=== PATIENT | female | born 1965 | race Caucasian/White ===

== ENCOUNTER 2017-12-16 12:59 | Inpatient (IN) ==
[2017-12-16] MEDS ORDERED: Nitroglycerin 25 MG/250 ML INFUS..BTL IVC SCH (17:45)
[2017-12-16] MEDS ORDERED: Naloxone 0.4 MG/ML INJ IVP PRN (17:53)
[2017-12-16] MEDS ORDERED: *HR* Promethazine 25 MG/ML VIAL ONE (17:56)
[2017-12-16] MEDS ORDERED: traMADol 50 MG TABLET PO PRN (17:59)
[2017-12-16] MEDS ORDERED: *HR* Heparin 5,000 UNIT/ML VIAL IVP PRN ×2 (17:59)
[2017-12-16] MEDS ORDERED: Heparin 25,000 UNIT/500 ML D5W 25,000 UNIT/500 ML BAG IVC SCH (18:00)
[2017-12-16] MEDS: *HR* Promethazine 25 MG/ML VIAL IVP PRN (18:00)
[2017-12-16] MEDS ORDERED: *HR* Metoprolol 5 MG/5 ML VIAL IVP PRN (18:03)
--- NOTE | 2017-12-16 18:09 | Internal Med History&Physical ---
Date of Encounter: 12/16/17 Time of Encounter: 15:50 Internal Medicine - H&P: HPI Chief complaint: chest pain History of present illness: Ms. Nair is a 52 year old female with morbid obesity and hypertension, presented to the outside hospital ED with sudden onset of chest pain. Started at 3 AM this morning, woke her up from the sleep, pressure-like, substernal in location, and radiates to left arm. She also complains of left arm numbness associated with it. She thought it was indigestion and took a couple of doses of ibuprofen as well as Tums without relief. Instead, she started vomiting at around 6:00 and decided to go to the ER for further evaluation. Denies any previous similar episodes. No recent illnesses, fevers/chills, abdominal pain, change in bowel habits, dysuria, joint pain, or rash. At the emergency department, she was hypertensive, but otherwise hemodynamically stable and afebrile. Initial labs including troponin were unremarkable, and EKG showed bifascicular block which ED physician was not sure whether there were old or new. Repeat troponin done 4 hours later was elevated at 0.17 and she had recurrence of chest pain which required few rounds of nitroglycerin hence she was started on nitro drip. She was loaded with aspirin and started on heparin drip and transferred to [facility] for further management. Past Med Surg Social Fam HX - Past Medical History Medical history: no medical history, hypertension Psychiatric history: anxiety - Social History Smoking Status: Never smoker Smokeless Tobacco Status: No Alcohol use: occasionally Drug use: none - Additional Family History Additional family history: No family history of premature CAD. Internal Medicine - H&P: Meds Hydrocodone/Acetaminophen [[place] 5-325 Tablet] 1 tab PO Q6H PRN #8 tab 02/25/16 [Rx] Naproxen [Naprosyn] 500 mg PO BID PRN #15 tablet 02/25/16 [Rx] 3 Allergy/AdvReac Type Severity Reaction Status Date / Time No Known Allergies Allergy Verified 02/25/16 11:19 All Systems PM: A 10-system review of systems was performed and is negative for pertinent findings except as documented above in the HPI. - Constitutional Vitals: Temp Pulse Resp BP Pulse Ox 98.2 F 80 10 158/102 95 12/16/17 17:16 12/16/17 17:16 12/16/17 17:16 12/16/17 17:16 12/16/17 17:16 Exam: General: Alert and oriented, mild distress HEENT:EOM, pupils equal, round, and reactive. Cardiovascular:Normal S1 & S2, no murmurs or gallops. No JVD. Pulse regular. Lungs:Normal breath sounds, no wheezes or crackles. Abdomen:Soft, non-tender, no rigidity. Extremities:No deformity, no edema or tenderness, no joint swelling. Neurological:Normal cognition and motor skills. Anxious Skin:Normal color, no rash, no lesions. Pulses:Carotid and radial pulses normal +2. Rest of the physical exam is non-contributory - Assessment and plan (1) NSTEMI (non-ST elevated myocardial infarction) Current Visit: Yes Status: Acute Assessment and plan: History and clinical findings are compatible with NSTEMI, concerning for type I event Troponin trended up to 0.17, EKG showed bifascicular block with prolonged QTC Loaded with Aspirin and started on heparin drip at the outside hospital ED -> continue Continue nitro gtt, titrate to resolution of her chest pain trend troponin echocardiogram d/w cardiology over the phone, will continue to trend troponin and titrate nitro gtt up to resolve her CP (2) Hypertension Current Visit: Yes Status: Acute Assessment and plan: She does not have a diagnosis of hypertension but her significant other by the bedside states that when she went for her ankle surgery a few years ago, her blood pressure was noted to be elevated. Suspect untreated, underlying hypertension PRN bb tonight, will likely need oral agent on discharge Qualifiers: Hypertension type: unspecified Qualified Code(s): I10 - Essential (primary ) hypertension (3) DVT prophylaxis Current Visit: Yes Status: Acute Assessment and plan: Heparin drip as above - Time Spent With Patient Total time spent is greater than 50% in coordination of care (as documented) at patient's floor/unit and/or counseling patient:
[2017-12-16 18:27] LABS: Hematocrit 40.8 % (35.3-44.9); Hemoglobin 13.7 g/dL (11.5-15.4); Mean Corpuscular HGB Conc 33.6 g/dL (31.6-35.5); Mean Corpuscular Hemoglobin 29.4 pg (28.0-33.3); Mean Corpuscular Volume 87.6 fL (83.0-100.0); Mean Platelet Volume 10.4 fL (9.4-12.4); Platelet Count 193 K/mcL (140-400); Red Blood Count 4.66 M/mcL (3.82-4.97); Red Cell Distribution Width 12.8 % (11.5-14.5)
[2017-12-16 18:42] LABS: Heparin anti-factor XA UFH 0.2 IU/mL (0.30-0.70)
[2017-12-16] MEDS: *HR* OxyCODONE Immed Rel 5 MG TABLET PO PRN (22:13)
[2017-12-17 00:49] LABS: Basophils % 0.2 %; Eosinophils % 0.2 %; Hematocrit 43.1 % (35.3-44.9); Hemoglobin 14.7 g/dL (11.5-15.4); Immature Granulocytes % 0.4 % (0-4); Lymphocytes # 1.7 K/mcL (0.6-4.6); Lymphocytes % 13.4 %; Mean Corpuscular HGB Conc 34.1 g/dL (31.6-35.5); Mean Corpuscular Hemoglobin 29.5 pg (28.0-33.3); Mean Corpuscular Volume 86.5 fL (83.0-100.0); Mean Platelet Volume 10.3 fL (9.4-12.4); Monocytes # 0.5 K/mcL (0.0-1.3); Monocytes % 4.3 %; Neutrophils # 10.2 K/mcL (1.6-8.9); Platelet Count 196 K/mcL (140-400); Red Blood Count 4.98 M/mcL (3.82-4.97); Red Cell Distribution Width 12.7 % (11.5-14.5); Segmented Neutrophils % 81.5 %
[2017-12-17] MEDS: Acetaminophen 325 MG TABLET PO PRN ×2 (00:55→12:10)
[2017-12-17 01:08] LABS: BUN/Creatinine Ratio 16 (6-26); Blood Urea Nitrogen 12 mg/dL (6-20); Calcium 9.7 mg/dL (8.6-10.3); Carbon Dioxide 29 mEq/L (23-29); Chloride 103 mEq/L (98-107); Chol/HDL Ratio 3.2 (0-4.9); Glucose 127 mg/dL (70-105); Magnesium 1.7 mg/dL (1.6-2.6); Osmolality,Calculated 289 (280-300); Potassium 3.6 mEq/L (3.5-5.1); Sodium 139 mEq/L (136-145); eGFR For Non-African Americans > 60 (> 60)
[2017-12-17] MEDS ORDERED: *HR* Morphine 2 MG/ML SYRINGE IVP PRN (01:28)
[2017-12-17 06:38] LABS: Estimated Average Glucose 137 mg/dl; Hemoglobin A1C 6.4 %
[2017-12-17] MEDS: *HR* Enoxaparin 150 MG/ML SYRINGE SQ SCH ×2 (09:28→16:36)
[2017-12-17] MEDS: Aspirin 81 MG TAB.CHEW PO SCH (09:28)
[2017-12-17] MEDS: *HR* OxyCODONE Immed Rel 5 MG TABLET PO PRN ×3 (09:35→22:38)
--- NOTE | 2017-12-17 09:37 | Cardiology Consult Note ---
<Verenice Carranza Stephen - Last Filed: 12/17/17 09:40> Date of Encounter: 12/17/17 Time of Encounter: 08:30 Assessment and Plan (1) NSTEMI (non-ST elevated myocardial infarction) Current Visit: Yes Status: Acute Reports episode of chest pain (indigestion) that started early Monday morning ~3AM. Initial troponin at [place] negative, repeat 0.17--then transferred to [facility]. Troponin: 1.32, 3.98, 5.98. Currently rates chest discomfort 2/10--on minimal dose of NTG, increase to keep CP free as BP will tolerate increase. On heparin gtt, however PTT has downtrended despite multiple dose adjustments/ boluses; Hospitalist has d/c'ed and started therapeutic lovenox. Continue asa, statin. Add BB. Check TTE. Recommend LHC with possible PCI; alternatives, risks, and benefits discussed, she is agreeable to proceed. If CP can be controlled with NTG, plan for LHC in AM. NPO after MN except medications. (2) Hypertension Current Visit: Yes Status: Acute No prior hx, suspect hx of untreated HTN. Severely elevated upon arrival, remains elevated as inpatient. On NTG gtt for CP. Start BB, may need additional antihypertensive agent prior to discharge. Qualifiers: Hypertension type: essential hypertension Qualified Code(s): I10 - Essential (primary) hypertension (3) HLD (hyperlipidemia) Current Visit: Yes Status: Acute New diagnosis. Start statin. Risk factor modification. Qualifiers: Hyperlipidemia type: mixed hyperlipidemia Qualified Code(s): E78.2 - Mixed hyperlipidemia Discussion w patient/family: The assessment and plan as outlined above was discussed with the patient and/or family members who expressed understanding and agreement. All questions were answered. Thank you for involving us in the care of your patient. Please call with any questions. History of Present Illness Consult date: 12/17/17 Requesting physician: Pete Sullivan Consult reason: NSTEMI Chief complaint: Chest pain History of present illness: Ms. Nair is a 52 year old female with no significant PMHx (does not follow with PCP) who presented as a transfer from [facility] due to concern for NSTEMI. Initial troponin negative, then 0.17. Ms. Nair was awakened with severe midsternal indigestion early Monday morning around 3AM. She report taking OTC tums and Zantac, reports indigestion did not improve. Around 6 AM she developed nausea with multiple episodes of vomiting associated with left arm /neck/jaw discomfort and pain. She then went to the ED for further evaluation. Upon arrival at [place], she was given ASA and NTG which improved symptoms. Reports nausea and vomiting recurred while being transported to [facility] but subsided with medication. Upon exam she rates 2/10 chest discomfort; on NTG gtt at 5 mcg/min. On IV heparin gtt currently. She denies prior hx of RI or prior CV testing. Does not routinely follow with provider. Was told she her blood pressure was elevated last year while in the ED for broken leg, but did not follow-up. Often times takes OTC ibuprofen for arthritic pain and OTC tums/zantac for indigestion. Past Med Surg Social Fam HX - Past Medical History Attestation: Yes The following information was validated with the patient. Source: patient Medical history: no medical history, GERD Psychiatric history: anxiety - Social History Smoking Status: Never smoker Smokeless Tobacco Status: No Alcohol use: occasionally Drug use: none - Family History Mother History Unknown: Yes Medications and Allergies Hydrocodone/Acetaminophen [[place] 5-325 Tablet] 1 tab PO Q6H PRN #8 tab 02/25/16 [Rx] Naproxen [Naprosyn] 500 mg PO BID PRN #15 tablet 02/25/16 [Rx] 3 Allergy/AdvReac Type Severity Reaction Status Date / Time No Known Allergies Allergy Verified 02/25/16 11:19 All Systems Review: The remainder of the systems were reviewed and are negative - Cardiovascular Cardiovascular: as per HPI Physical Examination Vital Signs, Last 4 Hours Temp Pulse Resp BP Pulse Ox 12/17/17 07:28 98.8 F 86 18 171/96 97 General: Conversant, No Apparent Distress, Other (obese) HEENT: Atraumatic, Normocephaly, Mucus Membranes Moist Neck: No JVD, Normal carotid pulses Cardiac: Reg Rate and Rhythm, Normal S1 and S2, No Murmur Lungs: Normal Breath Sounds, No Wheeze, Rales, Rhonchi Neuro: Alert and responsive, No focal deficits noted Abdomen: Soft, Non-Tender Skin: No rashes noted on visualized skin Musculoskeletal: No Chest Wall Tenderness Extremities: No Clubbing, No Cyanosis, No Edema, Normal Pulses Results 12/17/17 00:37 12/17/17 00:37 Lab Results 12/16/17 12/16/17 12/16/17 18:07 18:07 18:15 WBC 11.1 Hgb 13.7 Hct 40.8 Plt Count 193 APTT 39.0 H Sodium Potassium Chloride Carbon Dioxide BUN Creatinine Glucose Calcium Magnesium Troponin I 1.32 H* 12/17/17 12/17/17 12/17/17 00:37 00:37 00:37 WBC 12.5 H Hgb 14.7 Hct 43.1 Plt Count 196 APTT Sodium 139 Potassium 3.6 Chloride 103 Carbon Dioxide 29 BUN 12 Creatinine 0.76 Glucose 127 H Calcium 9.7 Magnesium 1.7 Troponin I 3.98 H* 12/17/17 06:40 WBC Hgb Hct Plt Count APTT Sodium Potassium Chloride Carbon Dioxide BUN Creatinine Glucose Calcium Magnesium Troponin I 5.98 H* Active Medications Acetaminophen (Tylenol) 650 mg PO Q6HR PRN PRN Reason: Mild Pain/Fever Stop: 06/17/18 18:00 Last Admin: 12/17/17 00:55 Dose: 650 mg Aspirin (Aspirin) 81 mg PO DAILY LEILANI Stop: 06/18/18 09:01 Last Admin: 12/17/17 09:28 Dose: 81 mg Atorvastatin Calcium (Lipitor) 80 mg PO HS LEILANI Stop: 06/18/18 21:01 Enoxaparin Sodium (Lovenox) 140 mg 1 mg/kg (140 mg) SQ Q12HR LEILANI PRN Reason: Protocol Stop: 06/18/18 08:00 Last Admin: 12/17/17 09:28 Dose: 140 mg Nitroglycerin (Nitroglycerin Premix 25 Mg/250 Ml) 25 mg in 250 mls @ 3 mls/hr IVC .Q24H LEILANI; 5 MCG/MIN PRN Reason: Protocol Last Titration: 12/17/17 09:48 Dose: 20 mcg/min, 12 mls/hr Metoprolol Tartrate (Lopressor) 25 mg PO BID LEILANI Stop: 06/18/18 09:46 Morphine Sulfate (Morphine Sulfate) 2 mg IVP Q4HR PRN; Protocol PRN Reason: Chest Pain Stop: 06/18/18 01:29 Naloxone HCl (Narcan) 0.4 mg IVP Q2MIN PRN PRN Reason: SEE COMMENTS Stop: 06/17/18 17:54 Ondansetron HCl (Zofran) 4 mg IVP Q6HR PRN; Protocol PRN Reason: Nausea Stop: 06/17/18 17:32 Last Admin: 12/17/17 09:39 Dose: 4 mg Oxycodone HCl (Roxicodone) 10 mg PO Q6HR PRN PRN Reason: Severe Pain Stop: 06/17/18 18:00 Last Admin: 12/17/17 09:35 Dose: 10 mg Promethazine HCl (Phenergan) 12.5 mg IVP Q6HR PRN PRN Reason: Nausea And Vomiting Stop: 06/17/18 17:58 Last Admin: 12/16/17 18:00 Dose: 12.5 mg Tramadol HCl (Ultram) 50 mg PO Q6HR PRN PRN Reason: Moderate Pain Stop: 06/17/18 18:00 - Imaging and Cardiology Echo: pending Other Results: 12 hour tele: avg HR=90 SR. NO events noted. - EKG Interpretation EKG results cardiology: personally reviewed Consult Discharge Plan - Plan Referrals: NONE,PCP [Primary Care Provider] - <Jackie Perez - Last Filed: 12/17/17 11:42> Date of Encounter: 12/17/17 - Attending Attestation I examined this patient and my medical decision-making was reviewed with the PATHOLOGY SUPERVISOR. I agree with the documented findings, disposition and treatment plan as described. Ms. Nair presented with indigestion and chest discomfort developing early Monday morning around 3AM. Initial troponin was negative at [place]. After patient was transferred to [place], her troponin elevated to 5.98. ECG without ischemic ECG findings. Heparin drip was started yesterday but because it has been difficult to titrate and subtherapeutic, lovenox has been started. At the bedside the patient describes mild symptoms of 'chest heaviness' originally 2/ 10 now 1/10 but without resolution. Unable to uptitrate NTG gtt on her current floor so she is being transferred to a step down unit. I discussed her case and plan with nursing on the unit she will be transferred to. Recommend uptitration of NTG gtt for pain control. Will recheck troponin for trend. Beta caio started. If symptoms persist despite medical therapy, will bring the cardiac blood bank laboratory technologist team in to perform LHC for NSTEMI with unstable symptoms. The R/B/A of LHC were discussed with the patient. She expressed understanding and agreement to proceed at some point within the next 24h pending symptoms. Continue asa, statin, BB, lovenox, IV NTG. Of note, patient does not see a physician on a regular basis. Workup includes elevated HgbA1C - will defer management to primary team. Also with elevated lipids and blood pressure. Appears to have undiagnosed risk factors for CAD. Assessment and Plan Discussion w patient/family: The assessment and plan as outlined above was discussed with the patient and/or family members who expressed understanding and agreement. All questions were answered. Thank you for involving us in the care of your patient. Please call with any questions. History of Present Illness History of present illness: Ms. Nair is a 52 year old female All Systems Review: The remainder of the systems were reviewed and are negative Physical Examination Vital Signs, Last 4 Hours Pulse BP 12/17/17 10:45 85 171/124 12/17/17 09:56 90 165/96 12/17/17 09:49 86 177/113 Results 12/17/17 00:37 12/17/17 00:37 Lab Results 12/16/17 12/16/17 12/16/17 18:07 18:07 18:15 WBC 11.1 Hgb 13.7 Hct 40.8 Plt Count 193 APTT 39.0 H Sodium Potassium Chloride Carbon Dioxide BUN Creatinine Glucose Calcium Magnesium Troponin I 1.32 H* 12/17/17 12/17/17 12/17/17 00:37 00:37 00:37 WBC 12.5 H Hgb 14.7 Hct 43.1 Plt Count 196 APTT Sodium 139 Potassium 3.6 Chloride 103 Carbon Dioxide 29 BUN 12 Creatinine 0.76 Glucose 127 H Calcium 9.7 Magnesium 1.7 Troponin I 3.98 H* 12/17/17 06:40 WBC Hgb Hct Plt Count APTT Sodium Potassium Chloride Carbon Dioxide BUN Creatinine Glucose Calcium Magnesium Troponin I 5.98 H*
[2017-12-17] MEDS: Ondansetron 4 MG/2 ML VIAL IVP PRN ×2 (09:39→18:20)
[2017-12-17] MEDS: Nitroglycerin 25 MG/250 ML INFUS..BTL IVC SCH ×2 (12:05→22:41)
[2017-12-17] MEDS: *HR* Promethazine 25 MG/ML VIAL IVP PRN ×2 (12:10→22:40)
--- NOTE | 2017-12-17 13:20 | Internal Med Progress Note ---
Date of Encounter: 12/17/17 Time of Encounter: 10:30 - Assessment and plan (1) Hypertensive emergency Current Visit: Yes Status: Acute Assessment and plan: Blood pressure is elevated at 171/124. On IV nitroglycerin. Will transfer patient to up titrate nitroglycerin. (2) NSTEMI (non-ST elevated myocardial infarction) Current Visit: Yes Status: Acute Assessment and plan: Troponins continue to rise. Patient has been subtherapeutic despite receiving IV heparin. Therefore switched to Lovenox today. Continue nitroglycerin drip. Cardiology consult appreciated. Plan for left heart catheterization within the next 24 hours. Continue aspirin, statin. Also started on beta caio. (3) Hypertension Current Visit: Yes Status: Acute Assessment and plan: Uncontrolled. Qualifiers: Hypertension type: essential hypertension Qualified Code(s): I10 - Essential (primary) hypertension (4) DVT prophylaxis Current Visit: Yes Status: Acute Assessment and plan: On subcutaneous Lovenox (5) Prediabetes Current Visit: Yes Status: Acute Assessment and plan: A1c 6.4%. Recommend dietary changes and lifestyle changes at this time. Also consider starting metformin at time of discharge. (6) HLD (hyperlipidemia) Current Visit: Yes Status: Acute Assessment and plan: Started on statin. Patient has mixed hyperlipidemia Qualifiers: Hyperlipidemia type: mixed hyperlipidemia Qualified Code(s): E78.2 - Mixed hyperlipidemia - Time Spent With Patient Total time spent is greater than 50% in coordination of care (as documented) at patient's floor/unit and/or counseling patient: - Subjective Interval history: Patient feeling better today. She does have some chest discomfort although it has improved while she is receiving intravenous nitroglycerin. No shortness of breath. Her blood pressure has been elevated. Denies any headache or blurred vision - Constitutional Vitals: Temp Pulse Resp BP Pulse Ox 98.4 F 69 18 132/81 94 12/17/17 11:35 12/17/17 11:35 12/17/17 11:35 12/17/17 11:35 12/17/17 11:35 General appearance: Present: cooperative, A&O X 3, morbidly obese, answers questions appropriately - Neck Neck exam general surgery: Present: supple, trachea midline. Absent: lymphadenopathy - Respiratory Respiratory exam: Present: CTAB. Absent: accessory muscle use, rales, rhonchi, wheezes - Cardiovascular Cardiovascular exam: Present: RRR, +S1, +S2. Absent: diastolic murmur, gallop, rubs, systolic murmur - GI/Abdominal GI/Abdominal exam: Present: normal bowel sounds, soft, no peritoneal signs. Absent: distended, tenderness - Extremities Exam Extremities exam: Present: warm, radial pulses palpable and symmetrical. Absent : calf tenderness, cyanotic, pedal edema - Neurological Exam Neurological exam: Present: alert, CN II-XII intact, oriented X3, no focal deficits. Absent: facial droop, speech deficit Internal Medicine: Result - Labs CBC & Chem 7: 12/17/17 00:37 12/17/17 00:37 Labs: Short CBC 12/16/17 12/17/17 Range/Units 18:15 00:37 WBC 11.1 12.5 H (4.3-11.1) K/mcL Hgb 13.7 14.7 (11.5-15.4) g/dL Hct 40.8 43.1 (35.3-44.9) % Plt Count 193 196 (140-400) K/mcL Neutrophils # 10.2 H (1.6-8.9) K/mcL BMP 12/17/17 00:37 Sodium 139 Potassium 3.6 Chloride 103 Carbon Dioxide 29 BUN 12 Creatinine 0.76 Glucose 127 H Calcium 9.7 Cardiac Enzymes 12/16/17 12/17/17 12/17/17 Range/Units 18:07 00:37 06:40 Troponin I 1.32 H* 3.98 H* 5.98 H* (< 0.04) ng/mL - Impressions Impressions Echocardiogram 12/17/17 07:00 Impressions: LVEF 55%. Normal LV wall motion. Mild left ventricular diastolic dysfunction. Normal right ventricular structure and function. Mild mitral regurgitation. No pulmonary hypertension. There is a trivial pericardial effusion present along the inferior border of the LV. There is no echocardiographic evidence of tamponade. Left Ventricular Wall Motion: Rest Echo Findings All wall segments showed normal motion. Findings: Study Quality * Technically adequate exam. ECG Findings * Normal sinus rhythm. Left Ventricle * LVEF 55%. * Normal LV chamber size, wall thickness and function. * Mild left ventricular diastolic dysfunction. Right Ventricle * Normal right ventricular structure and function. Left Atrium * Mildly dilated left atrium. Right Atrium * Normal right atrial size. Mitral Valve * Normal mitral valve structure. * No mitral stenosis. * Mild mitral regurgitation. Aortic Valve * No aortic regurgitation. * No aortic stenosis. * Aortic valve not well visualized. Tricuspid Valve * Tricuspid valve not well visualized. * No tricuspid regurgitation. Pulmonic Valve * Pulmonic valve is not well visualized. * No pulmonic stenosis. * No pulmonic regurgitation. Pulmonary Artery * Pulmonary artery not well visualized. Aorta * Normally sized aortic root. Pericardium * There is a trivial pericardial effusion present. * There is no echocardiographic evidence of tamponade. Interatrial Septum * Interatrial septum not well evaluated. IVC * The IVC is not well evaluated. Consult Discharge Plan - Plan Referrals: NONE,PCP [Primary Care Provider] -
--- NOTE | 2017-12-17 13:25 | Event Note ---
Date of Encounter: 12/17/17 Time of Encounter: 13:23 - Cardiology Event Note Spoke with Nursing (Toni) on [address] - patient's chest pain has resolved. Her troponin is still pending for trend. Echo images demonstrated normal LVEF, 55% without apparent LV wall motion abnormality. At this time, will plan on [facility] Monday. I've asked Toni to call me if symptoms of chest discomfort return.
[2017-12-18 04:55] LABS: Basophils % 0.2 %; Eosinophils % 0.2 %; Hematocrit 39.7 % (35.3-44.9); Hemoglobin 13.8 g/dL (11.5-15.4); Immature Granulocytes % 0.3 % (0-4); Lymphocytes # 2.2 K/mcL (0.6-4.6); Lymphocytes % 21.8 %; Mean Corpuscular HGB Conc 34.8 g/dL (31.6-35.5); Mean Corpuscular Hemoglobin 30.7 pg (28.0-33.3); Mean Corpuscular Volume 88.2 fL (83.0-100.0); Mean Platelet Volume 10.7 fL (9.4-12.4); Monocytes # 0.7 K/mcL (0.0-1.3); Monocytes % 6.6 %; Neutrophils # 7.1 K/mcL (1.6-8.9); Platelet Count 202 K/mcL (140-400); Red Cell Distribution Width 12.9 % (11.5-14.5); Segmented Neutrophils % 70.9 %
[2017-12-18 05:15] LABS: BUN/Creatinine Ratio 15 (6-26); Blood Urea Nitrogen 12 mg/dL (6-20); Calcium 9.1 mg/dL (8.6-10.3); Carbon Dioxide 33 mEq/L (23-29); Chloride 101 mEq/L (98-107); Glucose 119 mg/dL (70-105); Osmolality,Calculated 287 (280-300); Potassium 3.2 mEq/L (3.5-5.1); Sodium 138 mEq/L (136-145); eGFR For Non-African Americans > 60 (> 60)
[2017-12-18] MEDS: *HR* Promethazine 25 MG/ML VIAL IVP PRN (05:35)
[2017-12-18] MEDS: *HR* OxyCODONE Immed Rel 5 MG TABLET PO PRN ×3 (05:35→18:11)
[2017-12-18] MEDS ORDERED: 0.9 % Sodium Chloride 250 ML ONE (05:40)
[2017-12-18] MEDS: Aspirin 81 MG TAB.CHEW PO SCH (07:39)
--- NOTE | 2017-12-18 08:26 | Event Note ---
Date of Encounter: 12/18/17 Time of Encounter: 08:00 - Cardiology Event Note Seen and examined. No chest pain upon exam this morning. Remains on NTG gtt. Plan for LHC with possible PCI, patient agreeable to proceed. Further recommendations to follow.
--- NOTE | 2017-12-18 08:29 | Pre-Sedation Evaluation ---
Pre-sedation evaluation - Pre-sedation checklist Date of procedure: 12/18/17 Procedure: heart catherization Recent Vitals: Last Vital Signs Temp 98.9 F 12/18/17 07:02 Pulse 83 12/18/17 07:02 Resp 18 12/18/17 07:02 BP 118/79 12/18/17 07:02 Pulse Ox 95 12/18/17 07:02 H&P (including ROS) documented in medical record: Yes Previous reaction to sedatives/anesthetics: No Dietary Status: NPO after Midnight Dentition: No loose teeth or bridges ASA Classification *see protocol: CLASS II-Mild systemic disease Cardiac Registry (Cardio Only) - Functional Capacity Functional Capacity: >=4 METS with symptoms - Clincal Frailty Scale Clinical Frailty Scale: Vulnerable
[2017-12-18] MEDS ORDERED: *HR* Midazolam HCl 2 MG/2 ML VIAL ONE (08:48)
[2017-12-18] MEDS ORDERED: *HR* FentaNYL (PF) 100 MCG/2 ML VIAL ONE (08:48)
[2017-12-18] MEDS ORDERED: 0.9 % Sodium Chloride 1,000 ML ONE (08:48)
[2017-12-18] MEDS ORDERED: Tirofiban 12.5 MG/250ML 12.5 MG/250 ML BAG ONE (09:17)
[2017-12-18] MEDS ORDERED: ISOVUE-370 200 ML INFUS..BTL IV ONE (09:29)
[2017-12-18] MEDS ORDERED: *HR* Ticagrelor 90 MG TABLET ONE (09:48)
[2017-12-18] MEDS ORDERED: Tirofiban 12.5 MG/250ML 12.5 MG/250 ML BAG IVC SCH (10:00)
--- NOTE | 2017-12-18 10:29 | Invasive Diagnostic Lab Proc ---
Name: Shania Nair Date of Study: 12/18/2017 Date: 1965 Ht: 66.1in Medical Record#: [id number] Age: 52 Wt: 295.42lb Gender: Female BSA: 2.36 Order #: [id number] BMI: 47.48 Physicians Procedure Physician: Benedicto Rodas MD Referring MD: Referring MD: Staff Name Position Time In Loly Benson RN Tie Maker 08:50 AM Madeleine Chairez RN Monitor 08:50 AM Nahomi Wilks RT (R) Scrub 08:50 AM Eva Baldwin RN Monitor 08:50 AM Indications Indication Non-Stemi Procedures Performed Procedure L HRT ARTERY/VENTRICLE ANGIO PRQ CARD ALEX STENT W/ANGIO 1 VSL Pre-Procedure Checklist Informed consent is complete signed and on chart. H&P is on chart. ID band is on and ID verified with patient. Patient NPO for procedure The procedure was described for the patient and questions were answered. Blood Pressure: 119/70 ECG is on chart. Rhythm: NSR Plan of Care Patient will tolerate the procedure without complications. Adequate level of comfort will be maintained. Hemodynamics will remain stable Patient will recover from procedure without complications. Respiratory function will be maintained. Cardiac rhythm will remain stable. Patient temperature will be maintained. Patient and/or family have verbalized understanding of the procedure. Patient Education Chief Complaint/Reason for Test: Cardiac Cath Developmental Category: Adult (18-64 years) Developmentally Appropriate for Age: Yes Learning Barriers: None Education Needs: Procedure Education Method: Verbal Information Taught: Cardiac Cath Educational Evaluation: Able to repeat information Intravenous Access Time IV Size Location DC'd Fluid/Drip Rate Units RN 22g 1" Patent On Arrival Rt Hand 0.9NaCl ml/hr 08:55 AM Started with 20g 1 1/4" Lt Arm 0.9NaCl 25 ml/hr Loly Benson RN Allergies No Known Allergies Vital Signs Time BP (mmHg) HR (bpm) O2 Sat. RR (bpm) LOC 08:51 AM / % 5 = Fully awake and oriented or at pre-proc level 08:51 AM / % 4 = Oriented but drowsy 09:06 AM / % 4 = Oriented but drowsy 09:21 AM / % 4 = Oriented but drowsy 08:47 AM / % 08:49 AM 125 / 63 78 97 % 08:53 AM 125 / 73 76 97 % 12 08:58 AM 119 / 70 74 95 % 11 09:03 AM 113 / 56 75 95 % 15 09:08 AM 110 / 58 72 94 % 22 09:13 AM 109 / 68 72 95 % 26 09:18 AM 112 / 71 72 95 % 14 09:23 AM 123 / 66 75 98 % 15 09:28 AM 126 / 67 76 97 % 16 09:33 AM 129 / 74 75 97 % 17 09:38 AM 134 / 80 74 90 % 20 09:43 AM 136 / 84 71 95 % 24 Procedural Medications Time Medication Dose Units Method Given By 08:52 AM Oxygen 2 L/min nasal cannula Loly Benson RN 08:50 AM Fentanyl 50 mcg Intravenous Loly Benson RN 08:50 AM Versed 1 mg Intravenous Loly Benson RN 08:59 AM Versed 0.5 mg Intravenous Loly Benson RN 08:59 AM Fentanyl 25 mcg Intravenous Loly Benson RN 08:59 AM Lidocaine 2% 19 ml Subcutaneous Benedicto Rodas MD 09:04 AM Lidocaine 2% 10 ml Subcutaneous Benedicto Rodas MD 09:08 AM Lidocaine 2% 10 ml Subcutaneous Benedicto Rodas MD 09:16 AM Heparin 5000 units Intravenous Loly Benson RN 09:19 AM Aggrastat Bolus: 66.5 ml Intravenous Loly Benson RN 09:20 AM Aggrastat 12.5mg/250ml 24 ml/hr Intravenous Loly Benson RN 09:27 AM Nitroglycerin 50 mcg Intracoronary Margaret Rodas MD 08:58 AM Nitroglycerin 15 mcg/min Intravenous 09:34 AM Nitroglycerin 100 mcg Intracoronary Margaret Rodas MD 09:47 AM Brilinta 180 mg Orally Loly Benson RN 09:59 AM Potassium Chloride 40 meq Orally Loly Benson RN ASA Classification: CLASS II- Mild systemic disease (i.e. well-controlled diabetes, hypertension, asthma, cigarette smoking) Bernarda Score Preprocedure Postprocedure Activity 2- Moves 4 extremities sustained head lift Activity 2- Moves 4 extremities sustained head lift Circulation 2- SBP +/= 20 points of pre-anesthetic level Circulation 2- SBP +/= 20 points of pre-anesthetic level Consciousness 2- Awake and alert oriented x 3 Consciousness 2- Awake and alert oriented x 3 O2 Saturation 2- Able to maintain O2 satruation of 92% on room air O2 Saturation 2- Able to maintain O2 satruation of 92% on room air Respiratory 2- Able to deep breathe and cough well Respiratory 2- Able to deep breathe and cough well Total Score 10 Total Score 10 Contrast Agent: Isovue Diagnostic Contrast: 172 ml Total Contrast: 172 ml Fluoro Dose: 41464 mGy Procedure Log Time Note Enter By 08:47 AM [ Enter Vitals data ] 08:48 AM Vitals capture started with the following parameters, Patient=Adult, Interval=5 min, Initial Wzrkbjrx=636 mmHg, Deflation Rate=5 mmHg, Cuff placed on Right Arm 08:48 AM Case Start 08:49 AM HR=78 bpm, GXDP=856/63 mmhg, SpO2=97.0 % 08:49 AM Meet and greet completed kmavis 08:49 AM Sign in performed according to hospital policy. kmavis 08:49 AM Pt arrived to director of laboratory operations 2 at 08:49 kmavis 08:50 AM Time: 08:50 Versed 1 mg Intravenous Given by Loly Benson RN kmavis 08:50 AM Loly Benson RN Position: Tie Maker Time in: 08:50 kmavis 08:50 AM Madeleine Chairez RN Position: Monitor Time in: 08:50 kmavis 08:50 AM Nahomi Wilks RT (R) Position: Scrub Time in: 08:50 kmavis 08:50 AM Eva Baldwin RN Position: Monitor Time in: 08:50 avis 08:50 AM Time: 08:50 Fentanyl 50 mcg Intravenous Given by Loly Benson RN kmavis 08:50 AM Patient charges- Angio tray pack, Navilyst 3mm J, Pulse Oximetry and ACIST tubing and transducer kmavis 08:51 AM IV Supplies used: J loop Angio Cath. kmavis 08:51 AM Hair removed from procedure site in holding area using clippers. Bilateral groin prepped with Chloraprep by Madeleine Chairez RN, then patient was draped. Skin intact. kmavis 08:51 AM Time: 08:51 Patient comfortable and pain free: Yes kmavis 08:51 AM Time: 08:51LOC: 5 = Fully awake and oriented or at pre-proc level kmavis 08:52 AM Time: 08:52 Oxygen on at 2 L/min per nasal cannula [facility] 08[facility] AM ASA Class CLASS II- Mild systemic disease (i.e. well-controlled diabetes, hypertension, asthma, cigarette smoking) kmavis 08:53 AM Recorded ECG: HR=75 Condition=Condition 1 08:53 AM HR=76 bpm, PNLP=700/73 mmhg, SpO2=97.0 %, Resp=12 B/min, Comment=SR 08:55 AM CathStat 08:57 AM Sign in performed according to hospital policy. avis 08:57 AM Procedure start 08:57 kmavis 08:57 AM Pressure channel 1 zeroed. 08:58 AM Patient arrived at 08:58 with Nitroglycerin Intravenous drip @ 15 mcg/min avis 08:58 AM HR=74 bpm, SOHX=933/70 mmhg, SpO2=95.0 %, Resp=11 B/min, EtCO2=35 mmHg, Comment=SR 08:59 AM Time: 08:59 Versed 0.5 mg Intravenous Given by Loly Benson RN [facility] 08:59 AM Time: 08:59 Fentanyl 25 mcg Intravenous Given by Loly Benson [facility] 08:59 AM Time out performed according to hospital policy avis 08:59 AM Time: 08:59 19 ml Lidocaine 2% to right groin Subcutaneous Given by Benedicto Rodas MD [place] 09:01 AM Micro-Introducer Kit utilized for sheath placement kmavis 09:02 AM right femoral hand injected for sheath placement kmavis 09:03 AM access removed, pressure held per dr. rodas km[place]ita 09:03 AM HR=75 bpm, RSJZ=928/56 mmhg, SpO2=95.0 %, Resp=15 B/min, EtCO2=42 mmHg, Comment=SR 09:04 AM Time: 09:04 10 ml Lidocaine 2% to right groin Subcutaneous Given by Benedicto Rodas MD kmolamide 09:05 AM Micro-Introducer Kit utilized for sheath placement kmavis 09:06 AM kmavis 09:06 AM hand injected 3ml of contrast for sheath placement to right groin kmavis 09:06 AM Time: 08:51LOC: 4 = Oriented but drowsy avis 09:07 AM access removed pressure held per dr. rodas kmavis 09:08 AM Time: 09:08 10 ml Lidocaine 2% to right groin Subcutaneous Given by Benedicto Rodas MD avis 09:08 AM HR=72 bpm, GHDL=672/58 mmhg, SpO2=94.0 %, Resp=22 B/min, EtCO2=50 mmHg 09:09 AM Micro-Introducer Kit utilized for sheath placement kmavis 09:10 AM hand injection of contrast for sheath placement to right groin kmavis 09:10 AM 5Fr FR 4 [facility]10 AM 0.035 145cm Navilyst 3mmJ wire [id number] avis 09:11 AM RCA angiography performed in multiple views. kmavis 09:11 AM Recorded Pressure: Ao, HR=70, Condition=Condition 1 (Aorta) Ao 99/69/84 09:11 AM Access obtained by percutaneous puncture. 6Fr 10cm Terumo [place] sheath placed in right Femoral artery. [id number] avis 09:11 AM Recorded Pressure: Ao, HR=75, Condition=Condition 1 (Aorta) Ao 88/68/79 09:12 AM Catheter removed avis 09:12 AM 5Fr FL 4 catheter inserted over the wire [facility] 09[facility]12 AM LCA angiography performed in multiple views. avis 09:13 AM HR=72 bpm, BWBO=314/68 mmhg, SpO2=95.0 %, Resp=26 B/min, EtCO2=48 mmHg, Comment=sr 09:13 AM Recorded Pressure: Ao, HR=73, Condition=Condition 1 (Aorta) Ao 95/69/82 09:15 AM Coronary Dominance: right kmavis 09:16 AM Lesion found in distal Ramus. Pre Stenosis: 100 Pre DAVID Flow: 2: Partial Flow/Perfusion (> 1 but < 3) kmavis 09:16 AM Catheter removed [facility] 09:16 AM Time: 09:16 Heparin 5000 units Intravenous Given by Loly Benson RN kmavis 09:17 AM 6Fr XB LAD 3.5 Cordis guide catheter was used to cannulate the PCI vessel successfully. reused? No kmavis 09:17 AM .014 [employer] [place] 190cm guide wire across target lesion- successful. reused? No kmavis 09:17 AM Inflation device was opened. kmavis 09:18 AM HR=72 bpm, SMLU=487/71 mmhg, SpO2=95.0 %, Resp=14 B/min, EtCO2=48 mmHg, Comment=sr 09:20 AM Time: 09:19 Aggrastat Bolus: 66.5 ml Intravenous Given by Loly Benson RN Key pump kmavis 09:20 AM Time: 09:20 Aggrastat 12.5mg/250ml 24 ml/hr Intravenous Given by Loly Benson RN Key pump kmavis 09:21 AM 2.0 mm x 12 mm Emerge Monorail balloon across target lesion- successful. reused? No avis 09:21 AM Time: 09:06LOC: 4 = Oriented but drowsy kmavis 09:21 AM Time: 09:06 Patient comfortable and pain free: Yes kmavis 09:22 AM Balloon inflated @ 6 chay for 6 seconds kmavis 09:22 AM Balloon inflated @ 10 chay for 7 seconds avis 09:22 AM Recorded Pressure: Ao, HR=75, Condition=Condition 1 (Aorta) Ao 97/72/85 09:23 AM Balloon inflated @ 9 chay for 9 seconds kmavis 09:23 AM HR=75 bpm, YDOX=671/66 mmhg, SpO2=98.0 %, Resp=15 B/min, EtCO2=50 mmHg, Comment=sr 09:24 AM Balloon inflated @ 8 chay for 30 seconds kmavis 09:25 AM Balloon inflated @ 10 chay for 30 seconds kmavis 09:26 AM Balloon catheter removed intact. kmavis 09:27 AM Time: 09:27 Nitroglycerin 50 mcg Intracoronary Given by Margaret Rodas MD kmavis 09:28 AM HR=76 bpm, IKCY=150/67 mmhg, SpO2=97.0 %, Resp=16 B/min, EtCO2=40 mmHg, Comment=sr 09:30 AM 2.25mm x 12mm Synergy drug-eluting stent across target lesion- successful Lot #[id number] kmavis 09:32 AM Stent deployed @ 9 chay for 9 seconds avis 09:32 AM Stent balloon reinflated @ 11 chay for 5 seconds kmavis 09:32 AM Stent balloon reinflated @ 11 chay for 9 seconds kmavis 09:33 AM Stent delivery system removed intact. kmavis 09:33 AM Recorded Pressure: Ao, HR=76, Condition=Condition 1 (Aorta) Ao 120/74/96 09:33 AM HR=75 bpm, PVTH=045/74 mmhg, SpO2=97.0 %, Resp=17 B/min, EtCO2=35 mmHg, Comment=sr 09:34 AM Time: 09:34 Nitroglycerin 100 mcg Intracoronary Given by Margaret Rodas MD avis 09:34 AM Catheter removed avis 09:35 AM Wire removed avis 09:35 AM 5Fr Pigtail catheter inserted over the wire [facility] avis 09:36 AM Catheter selectively placed in left ventricle pressures obtained kmavis 09:36 AM Recorded Pressure: LV, HR=76, Condition=Condition 1 (Left Ventricle) LV 122/20/23 09:36 AM Recorded Pressure: LV, Ao, HR=75, Condition=Condition 1 (Left Ventricle) LV 125/26/26, (Aorta) Ao 123/78/99 09:37 AM Catheter removed avis 09:37 AM Time: 09:21 Patient comfortable and pain free: Yes avis 09:37 AM Time: 09:21LOC: 4 = Oriented but drowsy avi 09:38 AM Bolus angiogram of right Femoral complete: 4 ml/sec for a total of 7 mls avis 09:38 AM HR=74 bpm, UZQH=756/80 mmhg, SpO2=90.0 %, Resp=20 B/min, EtCO2=35 mmHg, Comment=sr 09:40 AM Procedure completed at 09:40 12/18/2017 [facility] 09:40 AM Did you address DAVID flow and Dominance? Yes avis 09:43 AM HR=71 bpm, CCXZ=375/84 mmhg, SpO2=95.0 %, Resp=24 B/min, EtCO2=35 mmHg, Comment=sr 09:44 AM Sign out completed: Radiation Dose 1113 mGy, 91367 cGy/cm2 Fluoro Time: 7.2 Isovue 370 - 200ml contrast 172 ml given by Benedicto Rodas MD. Complications: NoneCardiac Rehab Consult needed: YesConfirmed administered medications: Yes kmavis 09:44 AM Isovue 370 - 200ml,2 Bottle(s) used. kmavis 09:45 AM Arterial sheath pulled, Angio-seal closure device used and was Successful [id number] S/N. kmavis 09:45 AM Estimated Blood Loss: minimal kmavis 09:45 AM Post ECG NSR kmavis 09:45 AM Post Blood Pressure 136/84 kmavis 09:45 AM 09:45 Post Pulses Bilateral DP & PT 2+ kmavis 09:45 AM Information taught Cardiac Cath, PCI, and Angioseal kmavis 09:46 AM Education needs Procedure, Plan of Care, and Safe & Effective Use of Medications kmavis 09:46 AM Learning barriers :None kmavis 09:46 AM Education Methods Verbal kmavis 09:46 AM Site status No bleeding/hematoma - Rt Groin as reported by Nahomi Wilks RT (R) at 09:46 kmavis 09:46 AM Opsite applied kmavis 09:46 AM Complications: None kmavis 09:47 AM Time: 09:47 Brilinta 180 mg Orally Given by Loly Benson RN kmavis 09:58 AM Report given to Ericka GUERRA Pt taken to 2N Room #10. 09:55 kmavis 09:58 AM Family placed in consult room. kmavis 10:00 AM Time: 09:59 Potassium Chloride 40 meq Orally Given by Loly Benson RN kmavis 10:01 AM Patient out of room: 10:01 kmavis 10:01 AM Delay to floor No kmavis 10:01 AM Lesion found in Right PDA. Pre Stenosis: 25 kmavis 10:02 AM Lesion found in Mid LAD. Pre Stenosis: 25 kmavis 10:03 AM Mid/Distal Left Anterior Descending Coronary Artery and diagonal branches with 25% stenosis. kmavis 10:03 AM Ramus with 100% stenosis. kmavis 10:04 AM Lesion found in mid Ramus. Pre Stenosis: 99 Pre DAVID Flow: 2: Partial Flow/Perfusion (> 1 but < 3) kmavis Complications Complication None Hemodynamics Pressures Site Systolic/A Wave Diastolic/V Wave Mean AO 99 69 84 AO 88 68 79 AO 95 69 82 AO 97 72 85 AO 120 74 96 LV 122 20 23 LV 125 26 26 AO 123 78 99 Post Procedure Information Blood Pressure: 136/84 mmHg Rhythm: NSR Post procedural instructions were given Closure Device Time Device Success/Fail 12/18/2017 9:40:00 AM Angio-Seal VIP Successful Site Checks Time Location Status Staff Sheath In? Note 09:46 AM Rt Groin No bleeding/hematoma Nahomi Wilks RT (R) Pulses Time Site Pre-Procedure Post-Procedure Note Bilateral DP & PT 2+ Bilateral radial 2+ 9:45:00 AM Bilateral DP & PT 2+ Updated by Eva Baldwin RN on 12/18/2017 10:19:20 AM electronically signed on 12/18/2017 10:20:33 AM with status of Final
[2017-12-18 10:56] LABS: Basophils % 0.2 %; Eosinophils # 0.1 K/mcL (0.0-0.6); Eosinophils % 0.9 %; Hematocrit 44.3 % (35.3-44.9); Hemoglobin 15.1 g/dL (11.5-15.4); Immature Granulocytes % 0.4 % (0-4); Lymphocytes # 2.7 K/mcL (0.6-4.6); Lymphocytes % 19.7 %; Mean Corpuscular HGB Conc 34.1 g/dL (31.6-35.5); Mean Corpuscular Hemoglobin 29.4 pg (28.0-33.3); Mean Corpuscular Volume 86.2 fL (83.0-100.0); Mean Platelet Volume 10.5 fL (9.4-12.4); Monocytes % 7.1 %; Neutrophils # 9.8 K/mcL (1.6-8.9); Platelet Count 220 K/mcL (140-400); Red Blood Count 5.14 M/mcL (3.82-4.97); Segmented Neutrophils % 71.7 %
--- NOTE | 2017-12-18 17:36 | Electrocardiograph Report ---
[place] [id number] Test Date: 2017-12-16 Pat Name: Shania Nair Department: 112 Room: 2N10 Gender: F Environmental Lawyer: : 1965 Requested By: Pete Sullivan Order Number: [id number] Reading MD: Jackie Perez Measurements Intervals [place] Rate: 81 P: 30 IL: 182 QRS: -37 QRSD: 138 T: 44 QT: 402 QTc: 439 Interpretive Statements SINUS RHYTHM LEFT AXIS DEVIATION RIGHT BUNDLE BRANCH BLOCK Electronically Signed On 12-18-2017 17:34:44 EDT by Jackie Perez
--- NOTE | 2017-12-18 18:01 | Internal Med Progress Note ---
Hospitalist Progress Note - Encounter Date of Encounter: 12/18/17 Time of Encounter: 17:58 - Subjective Interval History: Pt was seen and examined at bed side. She denied any active CP now She just had an LHC with PCI to mid distal ramus - Exam Vitals: Temp Pulse Resp BP Pulse Ox 98.7 F 80 18 146/85 97 12/18/17 16:04 12/18/17 14:00 12/18/17 16:04 12/18/17 16:04 12/18/17 16:04 - Assessment and Plan (1) NSTEMI (non-ST elevated myocardial infarction) Current Visit: Yes Status: Acute Assessment and Plan: s.p LHC showed severe single vessel disease s/p ALEX to mid distal ramus on DAP ASA + Brilinta Metoprolol + statin + d/c nitro gtt (2) Hypertension Current Visit: Yes Status: Acute Assessment and Plan: stable with current meds (3) DVT prophylaxis Current Visit: Yes Status: Acute Assessment and Plan: On subcutaneous Lovenox (4) HLD (hyperlipidemia) Current Visit: Yes Status: Acute Assessment and Plan: Started on statin. Patient has mixed hyperlipidemia (5) Prediabetes Current Visit: Yes Status: Acute Assessment and Plan: A1c 6.4%. Recommend dietary changes and lifestyle changes at this time. Also consider starting metformin at time of discharge. - Time Spent with Patient Total time spent is greater than 50% in coordination of care (as documented) at patient's floor/unit and/or counseling patient: Internal Medicine: Result - Labs CBC & Chem 7: 12/18/17 10:45 12/18/17 03:56 Labs: Short CBC 12/18/17 12/18/17 Range/Units 03:56 10:45 WBC 10.0 13.7 H (4.3-11.1) K/mcL Hgb 13.8 15.1 (11.5-15.4) g/dL Hct 39.7 44.3 (35.3-44.9) % Plt Count 202 220 (140-400) K/mcL Neutrophils # 7.1 9.8 H (1.6-8.9) K/mcL BMP 12/18/17 03:56 Sodium 138 Potassium 3.2 L Chloride 101 Carbon Dioxide 33 H BUN 12 Creatinine 0.82 Glucose 119 H Calcium 9.1 Cardiac Enzymes 12/18/17 Range/Units 08:15 Troponin I 10.16 H* (< 0.04) ng/mL Consult Discharge Plan - Plan Referrals: Brenda Skaggs, ACQUISITIONS LOGISTICS ANALYST [Advanced Practice Nurse] - (This is a walkin only clinic) Verenice Carranza CNP [Partnered Physician] - (Office will call patient at home with follow up appointment) (2) Hypertension Qualifiers: Hypertension type: essential hypertension Qualified Code(s): I10 - Essential (primary) hypertension (4) HLD (hyperlipidemia) Qualifiers: Hyperlipidemia type: mixed hyperlipidemia Qualified Code(s): E78.2 - Mixed hyperlipidemia
[2017-12-18] MEDS: Ondansetron 4 MG/2 ML VIAL IVP PRN (21:20)
[2017-12-18] MEDS: *HR* Ticagrelor 90 MG TABLET PO SCH (21:20)
[2017-12-19] MEDS: *HR* OxyCODONE Immed Rel 5 MG TABLET PO PRN ×2 (01:19→13:36)
[2017-12-19] MEDS: *HR* Promethazine 25 MG/ML VIAL IVP PRN (01:19)
[2017-12-19 04:00] LABS: Basophils % 0.3 %; Eosinophils # 0.1 K/mcL (0.0-0.6); Eosinophils % 0.8 %; Hematocrit 38.1 % (35.3-44.9); Immature Granulocytes % 0.5 % (0-4); Lymphocytes % 20.2 %; Mean Corpuscular HGB Conc 33.1 g/dL (31.6-35.5); Mean Corpuscular Hemoglobin 29.1 pg (28.0-33.3); Mean Platelet Volume 10.2 fL (9.4-12.4); Monocytes # 0.6 K/mcL (0.0-1.3); Monocytes % 6.4 %; Neutrophils # 7.1 K/mcL (1.6-8.9); Platelet Count 170 K/mcL (140-400); Red Blood Count 4.33 M/mcL (3.82-4.97); Red Cell Distribution Width 12.9 % (11.5-14.5); Segmented Neutrophils % 71.8 %
[2017-12-19 04:06] LABS: Hemoglobin 12.6 g/dL (11.5-15.4)
[2017-12-19 04:11] LABS: BUN/Creatinine Ratio 18 (6-26); Blood Urea Nitrogen 14 mg/dL (6-20); Calcium 8.7 mg/dL (8.6-10.3); Carbon Dioxide 29 mEq/L (23-29); Chloride 103 mEq/L (98-107); Glucose 108 mg/dL (70-105); Osmolality,Calculated 287 (280-300); Potassium 3.3 mEq/L (3.5-5.1); Sodium 138 mEq/L (136-145); eGFR For Non-African Americans > 60 (> 60)
[2017-12-19] MEDS: *HR* Ticagrelor 90 MG TABLET PO SCH (07:51)
[2017-12-19] MEDS: Aspirin 81 MG TAB.CHEW PO SCH (07:51)
--- NOTE | 2017-12-19 10:53 | Cardiology Progress Note ---
Date of Encounter: 12/19/17 Time of Encounter: 10:40 Assessment and Plan (1) NSTEMI (non-ST elevated myocardial infarction) Current Visit: Yes Status: Acute Reports episode of chest pain (indigestion) that started early Monday morning ~3AM. Initial troponin at [facility] negative, repeat 0.17--then transferred to [facility]. Peak troponin 11.01 with downward trend. TTE 12/17/17: LVEF 55%, normal wall motion, trivial pericardial effusion--no tamponade. LHC 12/18/17: s/p successful PTCA/ALEX to Ramus; otherwise no significant obstructive CAD No chest pain or discomfort s/p PCI. Cardiac rehab. Recommend uninterrupted DAPT (asa + brilinta) for a minimum of 1 year--pt. verbalized understanding. Continue statin, BB. Cardiology will sign-off, will coordinate outpatient f/u. (2) Hypertension Current Visit: Yes Status: Acute No prior hx, suspect hx of untreated HTN. Severely elevated upon arrival, now improved. Continue current medical therapy. Qualifiers: Hypertension type: essential hypertension Qualified Code(s): I10 - Essential (primary) hypertension (3) HLD (hyperlipidemia) Current Visit: Yes Status: Acute New diagnosis. Start statin. Risk factor modification. Qualifiers: Hyperlipidemia type: mixed hyperlipidemia Qualified Code(s): E78.2 - Mixed hyperlipidemia Discussion w patient/family: The assessment and plan as outlined above was discussed with the patient and/or family members who expressed understanding and agreement. All questions were answered. Thank you for involving us in the care of your patient. Please call with any questions. The patient will be discussed and reviewed with Dr. Thomas; changes to be made accordingly. Subjective Principal diagnosis: NSTEMI Interval history: Seen and examined. No complaints overnight. No recurrent chest pain. No issues with right femoral cath site. Objective Vital Signs, Last 4 Hours Temp Pulse Resp BP Pulse Ox 12/19/17 07:31 99.0 F 95 18 132/82 91 12/19/17 07:00 80 General: Conversant, No Apparent Distress, Other (morbidly obese) HEENT: Atraumatic, Normocephaly, Mucus Membranes Moist Neck: No JVD, Normal carotid pulses Cardiac: Reg Rate and Rhythm, Normal S1 and S2, No Murmur Lungs: Normal Breath Sounds, No Wheeze, Rales, Rhonchi Neuro: Alert and responsive, No focal deficits noted Abdomen: Soft, Non-Tender Skin: No rashes noted on visualized skin Musculoskeletal: No Chest Wall Tenderness Extremities: No Clubbing, No Cyanosis, No Edema, Normal Pulses Other: right groin cath site: +2 DP/PT pulses. No hematoma, oozing, or bleeding noted. Results 12/19/17 03:35 12/19/17 03:35 Lab Results 12/18/17 12/19/17 12/19/17 10:45 03:35 03:35 WBC 13.7 H 9.8 Hgb 15.1 12.6 D Hct 44.3 38.1 Plt Count 220 170 Sodium 138 Potassium 3.3 L Chloride 103 Carbon Dioxide 29 BUN 14 Creatinine 0.79 Glucose 108 H Calcium 8.7 Active Medications Acetaminophen (Tylenol) 650 mg PO Q6HR PRN PRN Reason: Mild Pain/Fever Stop: 06/17/18 18:00 Last Admin: 12/17/17 12:10 Dose: 650 mg Aspirin (Aspirin) 81 mg PO DAILY LEILANI Stop: 06/18/18 09:01 Last Admin: 12/19/17 07:51 Dose: 81 mg Atorvastatin Calcium (Lipitor) 80 mg PO HS LEILANI Stop: 06/18/18 21:01 Last Admin: 12/18/17 21:20 Dose: 80 mg Enoxaparin Sodium (Lovenox) 140 mg 1 mg/kg (140 mg) SQ Q12HR LEILANI PRN Reason: Protocol Stop: 06/18/18 08:00 Last Admin: 12/17/17 16:36 Dose: 140 mg Nitroglycerin (Nitroglycerin Premix 25 Mg/250 Ml) 25 mg in 250 mls @ 3 mls/hr IVC .Q24H LEILANI; 5 MCG/MIN PRN Reason: Protocol Last Titration: 12/18/17 13:10 Dose: Infused Metoprolol Tartrate (Lopressor) 25 mg PO BID LEILANI Stop: 06/18/18 09:46 Last Admin: 12/19/17 07:51 Dose: 25 mg Morphine Sulfate (Morphine Sulfate) 2 mg IVP Q4HR PRN; Protocol PRN Reason: Chest Pain Stop: 06/18/18 01:29 Naloxone HCl (Narcan) 0.4 mg IVP Q2MIN PRN PRN Reason: SEE COMMENTS Stop: 06/17/18 17:54 Ondansetron HCl (Zofran) 4 mg IVP Q6HR PRN; Protocol PRN Reason: Nausea Stop: 06/17/18 17:32 Last Admin: 12/18/17 21:20 Dose: 4 mg Oxycodone HCl (Roxicodone) 10 mg PO Q6HR PRN PRN Reason: Severe Pain Stop: 06/17/18 18:00 Last Admin: 12/19/17 01:19 Dose: 10 mg Promethazine HCl (Phenergan) 12.5 mg IVP Q6HR PRN PRN Reason: Nausea And Vomiting Stop: 06/17/18 17:58 Last Admin: 12/19/17 01:19 Dose: 12.5 mg Ticagrelor (Brilinta) 90 mg PO BID LEILANI Stop: 06/19/18 21:01 Last Admin: 12/19/17 07:51 Dose: 90 mg Tramadol HCl (Ultram) 50 mg PO Q6HR PRN PRN Reason: Moderate Pain Stop: 06/17/18 18:00 Last Admin: 12/18/17 21:19 Dose: 50 mg - Imaging and Cardiology Echo: report reviewed Cardiac cath: report reviewed Other Results: 12 hour tele: avg HR=80 SR. - EKG Interpretation EKG results cardiology: personally reviewed Consult Discharge Plan - Plan Referrals: Brenda Skaggs PROCESS ANALYST [Advanced Practice Nurse] - (This is a walkin only clinic) Verenice Carranza CNP [Partnered Physician] - (Office will call patient at home with follow up appointment)
--- NOTE | 2017-12-19 15:04 | Discharge Summary ---
- NOTES TO OUTPATIENT PROVIDER Notes to Outpatient Provider: Follow with cardiology in 1-2 week. Follow with PCP in one week Orders not resulted at time of discharge: Pending orders 12/18/17 09:47 ECG 12 lead ECG [ECG] Routine ECG 12 lead ECG [ECG] Stat 12/19/17 07:00 ECG 12 lead ECG [ECG] Routine Date of Encounter: 12/19/17 Time of Encounter: 15:02 - Discharge Diagnosis (1) NSTEMI (non-ST elevated myocardial infarction) Priority: Primary Status: Acute Assessment and Plan: Status post with severe single-vessel disease. ALEX to mid distal ramus. Patient will be discharged on DAP ASA + Brilinta, beta caio, statin. Grape Picker's okay to discharge patient home with follow-up in the clinic. (2) Hypertension Priority: Secondary Status: Acute Assessment and Plan: stable with current meds Qualifiers: Hypertension type: essential hypertension Qualified Code(s): I10 - Essential (primary) hypertension (3) HLD (hyperlipidemia) Priority: Primary Status: Acute Assessment and Plan: Started on statin. Patient has mixed hyperlipidemia. Qualifiers: Hyperlipidemia type: mixed hyperlipidemia Qualified Code(s): E78.2 - Mixed hyperlipidemia (4) Prediabetes Priority: Primary Status: Acute Assessment and Plan: A1c 6.4%. Recommend dietary changes and lifestyle changes at this time. Metformin 500 mg by mouth daily started and further titration and diabetes management as per PCP. Hospital course: Ms. Nair is a 52 year old female got admitted for further management of NST CA. Grape Picker was consulted who did perform LHC status post PTCA/ALEX to ramus. Grape Picker's okay to discharge patient home on uninterrupted due to antiplatelet therapy aspirin and Brilinta for a minimum of 1 year, continue statin beta caio. Patient was also found to be prediabetic therefore low- dose metformin 500 mg daily started and further management as per PCP. At the time of discharge patient clinically stable, ambulating AND tolerating oral diet. Please see details in diagnosis part of discharge summary. - Time Spent with Patient Total time spent providing and/or coordinating discharge services: - Discharge Medications Home Medications: Aspirin 81 mg PO DAILY #30 tab.chew 12/19/17 [Rx] Atorvastatin [Lipitor] 80 mg PO HS #30 tablet 12/19/17 [Rx] Metoprolol [Lopressor] 25 mg PO BID #60 tablet 12/19/17 [Rx] Ticagrelor [Brilinta] 90 mg PO BID #60 tablet 12/19/17 [Rx] metFORMIN [Glucophage] 500 mg PO 0800 #30 tablet 12/19/17 [Rx] Allergies/Adverse Reactions: 3 Allergy/AdvReac Type Severity Reaction Status Date / Time No Known Allergies Allergy Verified 02/25/16 11:19 Date of admission: 12/16/17 17:01 Primary care physician: PCP NONE Consults: 12/16/17 18:04 Consult to Cardiology [CONS] Routine Comment: Consulting Provider: Cardiology Ione Reason for Consult: NSTEMI Call Completed: Yes 12/17/17 09:53 Consult to Cardiac Rehabilitation-Phase1 [CONS] Routine Comment: Reason for Consult: NSTEMI Call Completed: No 12/18/17 09:47 Consult to Cardiac Rehabilitation-Phase1 [CONS] Routine Comment: Reason for Consult: AMI Call Completed: Yes Consult to Nurse Navigator [CONS] Routine Comment: - Constitutional Vitals: Temp Pulse Resp BP Pulse Ox 98.5 F 71 18 113/74 95 12/19/17 11:06 12/19/17 11:06 12/19/17 11:06 12/19/17 11:06 12/19/17 11:06 General appearance: Present: cooperative, A&O X 3, morbidly obese, answers questions appropriately Exam: General appearance: No acute distress, A&O X 3 Head exam: Atraumatic Eye exam: EOMI, PERRLA ENT exam: Moist oral mucosa Neck nontender, supple Respiratory exam: Clear to auscultation bilaterally Cardiovascular exam: Regular rate and rhythm, no systolic murmur Abdominal exam: Soft, nontender, nondistended, positive bowel sounds Extremities exam: No calf tenderness, no pedal edema Present: Skin-no rash, warm, dry, intact Neurological exam: Alert, awake, oriented 3, CN II-XII intact, no focal deficits. No facial droop. Normal speech. Normal gait. - Patient Status Disposition: Home, Self-Care Condition: Good Overall status at discharge: patient is progressing back to baseline - Discharge Instructions Follow Up With: Brenda Skaggs, PRINTING AND STAMPING SUPERVISOR [Advanced Practice Nurse] - (This is a walkin only clinic) Verenice Carranza, IVELISSE [Partnered Physician] - (Office will call patient at home with follow up appointment) - Diet and Activity Activity: as per the cardiac rehab Diet: low fat, low cholesterol, low salt diet
[2017-12-19 15:55] VITALS: BP 132/80
[2017-12-20] MEDS ORDERED: *HR* Metformin 500 MG TABLET PO SCH (08:00)
--- NOTE | 2017-12-22 12:50 | Electrocardiograph Report ---
[place] [id number] Test Date: 2017-12-18 Pat Name: Shania Nair Department: 110 Room: 2N10 Gender: F Manager Route: : 1965 Requested By: Lilli Villalpando Order Number: [id number] Reading MD: Nicholas Thomas Measurements Intervals [place] Rate: 77 P: 7 KS: 180 QRS: -26 QRSD: 109 T: 87 QT: 400 QTc: 431 Interpretive Statements SINUS RHYTHM BORDERLINE LEFT AXIS DEVIATION LOW QRS VOLTAGE IN PRECORDIAL LEADS RIGHT BUNDLE BRANCH BLOCK Electronically Signed On 12-22-2017 12:48:46 EDT by Nicholas Thomas
== END 2017-12-19 18:11 | disposition home or self-care (01) | DRG 247 ==
LOC: 2ANU 17:01 → SUATTDRO 17:01 → 2NNU 12-17 12:05
PROVIDERS: ADMIT Internal Medicine; ATTEND Internal Medicine